=== PATIENT | female | born 1950 | race Caucasian/White ===

== ENCOUNTER → 2016-10-23 | Outpatient (CLI) | payer BC ==
--- NOTE | 2016-10-23 12:34 | RAD ---
Indication: Right upper quadrant pain. The liver shows increased echogenicity consistent with fatty infiltration. No discrete liver mass is detected. The liver is normal in size. The gallbladder contains small stones. No wall thickening or pericholecystic fluid is identified. No biliary ductal dilatation is seen. The spleen, pancreas and both kidneys are unremarkable. The aorta was poorly visualized. There is no ascites. Impression: Cholelithiasis and fatty infiltration of the liver. PQRS Compliance Statement: One or more of the following individualized dose reduction techniques were utilized for this examination: 1. Automated exposure control 2. Adjustment of the mA and/or kV according to patient size 3. Use of iterative reconstruction technique
== END | disposition home or self-care (01) ==
LOC: US 11:59
PROVIDERS: ATTEND Family Medicine
DX: R10.11 Right upper quadrant pain (principal); K80.20 Calculus of gallbladder without cholecystitis without obstruction; K76.0 Fatty (change of) liver, not elsewhere classified
CPT/HCPCS: 76700